=== PATIENT | male | born 2000 | race Caucasian/White ===

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

== ENCOUNTER 2025-05-20 16:28 | Emergency (ER) | payer MEDICAID ==
[~2025-05-20] VITALS: Ht 195.6 cm; Wt 126.8 kg
[~2025-05-20 16:28] MED LIST changes: -ALBU6.7H INH; +ALBU6.7H14 INH
--- NOTE | 2025-05-20 17:43 | Physician Documentation ---
History of Present Illness General Chief Complaint: Medication Request Stated Complaint: MED REQUEST Time Seen by MD: 16:49 History of Present Illness Initial Comments This is an otherwise well 24-year-old male who presents requesting 2nd rabies vaccine in rabies prophylaxis series after possible exposure to a bat three days prior, patient receive 1st dose of rabies prophylaxis at [facility]. Patient reports he feels otherwise well with no other acute symptoms or concerns. Medication Reconciliation Allergies: Coded Allergies: amoxicillin trihydrate (Verified Allergy, Mild, RASH, 07/08/12) potassium clavulanate (Verified Allergy, Mild, RASH, 07/08/12) Scheduled Albuterol Sulfate (Proventil Hfa), 2 PUFFS INH Q6H Guaifenesin (Mucinex), 1 TAB PO Q12H Miscellaneous Medications Home Med List (No Home Medications), (Reported) Past Medical History Past Medical History: No Pertinent History, Extremity Fracture Past Surgical History: no surgical history Smoking: Secondhand Alcohol Use: None Drug Use: none Lives with: Mother Lives In: Home Occupation: student, child Review of Systems ROS As stated above in the HPI, otherwise all systems are reviewed and negative. Physical Exam Physical Exam Vital Signs: Temperature: 98.2, Source: Temporal, Heart Rate: 79, Respiratory Rate: 16, BP: 141/90, Pulse Oximetry: 98, Weight: 126.820 Oxygen Flow Rate: 0 Physical Exam VITALS: Reviewed and as above. GENERAL: Alert, nontoxic appearing, no apparent distress. RESPIRATORY: No increased work of breathing, no respiratory distress, speaking in full clear sentences Progress Results/Orders Results/Orders Completed Orders - ADITYA ROMERO Rabies Vaccine (Pcec)/Pf (Rabavert Rabie (05/20/25 17:15) Vital Signs 05/20/25 05/20/25 16:41 20:56 Temp 98.2 98.2 Pulse 79 81 Resp 16 16 B/P (MAP) 141/90 141/90 Pulse Ox 98 99 O2 Flow Rate 0 Medical Decision Making Findings This otherwise well 24-year-old male presented requesting 2nd rabies vaccine in rabies prophylaxis series after possible bat exposure three days prior, patient as received 1st dose of rabies prophylaxis at [facility], as patient is otherwise well-appearing he will receive rabies vaccine in the emergency department and follow up as scheduled for remaining rabies vaccines and prophylaxis series. Patient provided home care instructions, return to care precautions, and follow up instructions which he verbalized understanding of. Differential Diagnosis Rabies, wound infection, allergic reaction, adverse medication reaction Departure Time of Disposition: 17:41 Disposition: 01 HOME / SELF CARE / HOMELESS Impression: Primary Impression: Need for post exposure prophylaxis for rabies Condition: Improved Additional Instructions: Please follow up as previously scheduled for the remaining rabies vaccines in the prophylaxis series, this is the on the and the 18. Please follow up with your primary care provider in the next few days. Please return to the emergency department for any new or worsening concerning symptoms. Referrals: NO PRIMARY CARE PROVIDER (PCP) Education Educated: Patient Educated regarding: diagnosis, treatment, prognosis, need for follow up Signature Scribe Signature: No scribe Attestation: The note accurately reflects work and decisions made by me.YOSEF Sifuentes 05/21/25 11:09 Parts of this note were created using [employer] voice recognition software program. While efforts were made to correct any mistakes made by this voice re cognition software program, nonsensical phrases may remain in this note. In addition, there may be errors and syntax, grammar, content and spelling. ADITYA ROMERO May 20, 2025 17:43
[2025-05-20 20:56] VITALS: BP 141/90; PULSE 81; RESP 16; TEMP 98.2; O2SAT 99
== END 2025-05-20 20:57 | disposition home or self-care (01) ==
LOC: ER 16:28
DX: Z20.3 Contact with and (suspected) exposure to rabies (principal); Z23 Encounter for immunization
CPT/HCPCS: 90471; 90675; 99282